=== PATIENT | male | born 1950 | race Caucasian/White ===

== ENCOUNTER 2016-09-03 16:07 | Inpatient (IN) | payer OTHER, MEDICAID ==
[~2016-09-03] VITALS: Ht 167.6 cm; Wt 67.6 kg
--- NOTE | 2016-09-03 16:25 | NUR ---
NO CP, NO SOB, NO SIGNS OF RESP DISTRESS NOTED.
--- NOTE | 2016-09-03 16:34 | NUR ---
PT RESTING COMFORTABLY. BREATHING EVEN UNLABORED IN NAD.
--- NOTE | 2016-09-03 16:45 | NUR ---
PT BIB FAMILY C/C COUGH BODY ACHES X [address] BARRON AT BEDSIDE TO LISA
--- NOTE | 2016-09-03 16:58 | NUR ---
PT STARTED ON IV ATB
--- NOTE | 2016-09-03 17:02 | NUR ---
PLEASE ENTER FULL NAMES OF DOWELER/RN Patient data collected by (DOWELER):BLANCA FORD Assessment reviewed and completed by (RN):CON CABRAL
[2016-09-03 17:05] LABS: PLATELET COUNT 220 x10^3mcL (130-400); RED CELL DISTRIBUTION WIDTH 13.7 % (11.5-14.5)
[2016-09-03 17:09] LABS: CARBON DIOXIDE 31.5 mmol/L (21-32); CHLORIDE SERUM 100 mmol/L (98-107); CREATININE SERUM 0.9 mg/dL (0.7-1.3); GFR1 > 60 mL/min; GLUCOSE SERUM 117 mg/dL (74-106); SODIUM SERUM 136 mmol/L (136-145)
[2016-09-03 17:14] LABS: ALBUMIN 3.7 g/dL (3.4-5.0); ALKALINE PHOSPHATASE 106 U/L (46-116); ALT/SGPT 16 U/L (16-63); AST/SGOT 14 U/L (15-37); BILIRUBIN TOTAL 0.77 mg/dL (0.20-1.00); TOTAL PROTEIN, SERUM 7.3 g/dL (6.4-8.2)
[2016-09-03 17:50] LABS: BAND NEUTROPHIL 1 % (0-10); BASOPHIL 0 % (0-2); SEGMENTED NEUTROPHILS 17 % (37-75)
[2016-09-03 17:51] LABS: MONOCYTE 13 % (0-7); PLATELET MORPHOLOGY PLATELETS NORMAL
--- NOTE | 2016-09-03 17:55 | NUR ---
PT MEDICATED PER MD ORDERS FOR PAIN.
[2016-09-03 18:10] LABS: PATH REVIEW for HEMA YES
--- NOTE | 2016-09-03 18:53 | NUR ---
PT ADMIT TO TELE ROOM 224A GAVE REPORT TO AMELIA
[2016-09-03 19:16] LABS: CHOLESTEROL/HDL RATIO 3.4
[2016-09-03 19:20] VITALS: BP 138/78
[2016-09-03 19:23] LABS: T3 TOTAL 0.97 ng/mL
[2016-09-03 19:29] LABS: FREE T4 1.34 ng/dL (0.76-1.46); FREE THYROXINE INDEX 3.1 ug/dL (1.4-4.5); T4(THYROXINE) 9.9 ug/dL (4.7-13.3)
--- NOTE | 2016-09-03 19:34 | NUR ---
REC'D AOX4, SPEECH CLEAR. DENIES HOFF AND DIZZINESS. AT THE BEDSIDE. ATTACHED TELE 20. NSR. DENIES CHEST PAIN. C/O COUGH. ON RA, NO SOB NOTED. IV SITE WNL. ORIENTED PT TO ROOM AND SURROUNDINGS. CALL LIGHT WITHIN REACH, PROVIDED REPORT TO ASIF [place]
--- NOTE | 2016-09-03 19:45 | NUR ---
STARTED IV NS BOLUS INFUSING LEFT AC. DENIES ANY PAIN OR DISCOMFORT. PT STATED HE RECEIVED HIS LAST CHEMO THIS AUGUST. FROM MARCH 2016 TO LAST WEEK. MADE COMFORTABLE IN BED. SKIN IS INTACT. WILL MONITOR.
[2016-09-03 22:04] VITALS: BP 138/78
--- NOTE | 2016-09-03 22:47 | NUR ---
THE BOLUS WAS NOT FINISHED BECAUSE THE PT WENT TO CT SCAN AND BEFORE THAT IT WAS CLOGGED. RESUMED IV BOLUS AFTER THE LEVAQUIN IV. PT VOMITED AFTER THE CT SCAN MEDICATED WITH ZOFRAN. VOMITED SMALL YELLOWISH SECRETIONS ABOUT75 ML. WILL MONITOR. ALSO WAS SHIVERING. WARM BLANKET WAS PROVIDED.
--- NOTE | 2016-09-03 22:50 | NUR ---
MEDICATED WITH ZOFRAN 4MG IVPUSH FOR VOMITING. HEAD OF BED ELEVATED.
--- NOTE | 2016-09-04 00:41 | NUR ---
THE SECOND LITER OF NS BOLUS IS INFUSING. PT TOLERATED WELL. ONE MORE 500 ML BOLUS AFTER THE SECOND LITER OF NS. VITAL SIGNS DOCUMENTED.
[2016-09-04 00:42] VITALS: BP 112/66
--- NOTE | 2016-09-04 03:06 | NUR ---
THE REMAINING 500 ML BOLUS IS INFUSING. PT TOLERATED WELL.
[2016-09-04 04:34] VITALS: Ht 167.6 cm; Wt 67.6 kg
--- NOTE | 2016-09-04 05:30 | NUR ---
PT IS RESTING. ABLE TO TOLERATE BOLUS NS AT 2500 ML. MADE COMFORTABLE IN BED. CALL LIGHT WITHIN. USING URINAL. WILL MONITOR.
[2016-09-04 06:12] LABS: PLATELET COUNT 167 x10^3mcL (130-400); RED CELL DISTRIBUTION WIDTH 13.6 % (11.5-14.5)
[2016-09-04 06:26] LABS: CALCIUM 8.2 mg/dL (8.5-10.1); CARBON DIOXIDE 26.2 mmol/L (21-32); CHLORIDE SERUM 105 mmol/L (98-107); CREATININE SERUM 0.8 mg/dL (0.7-1.3); GFR1 > 60 mL/min; GLUCOSE SERUM 105 mg/dL (74-106); MAGNESIUM 1.7 mg/dL (1.8-2.4); PHOSPHOROUS 3.1 mg/dL (2.5-4.9); POTASSIUM SERUM 4.3 mmol/L (3.5-5.1); SODIUM SERUM 137 mmol/L (136-145)
--- NOTE | 2016-09-04 06:58 | NUR ---
PT'S HEART MONITOR WAS DISCONTINUED. CHANGED STATUS TO Uptake.
[2016-09-04 07:21] VITALS: BP 112/66; BP 133/85
--- NOTE | 2016-09-04 07:30 | NUR ---
RECEIVED PATIENT AAOX4, ABLE TO COMMUNICATE AND FOLLOW COMMANDS, NO DISTRESS NOTED, AND DENIES CHEST PAIN. PALPABLE PULSES TO BUE/BLE AND SCDS IN PLACE. ON ROOM AIR, DENIES SOB, AND RESPIRAITON EVEN AND UNLABORED. DENIES N/V/D. VOIDS FREELY WITH BRP AND UP WITH SLOW/BALANCED GIAT. DENIES PAIN. IV TO LAC CDI AND INFUSING NS AT 120ML/HR FREELY. CALL LIGHT AND BELONGINGS WITHIN REACH, AND WILL CONTINUE TO MONITOR.
--- NOTE | 2016-09-04 08:45 | NUR ---
ROUNDS MADE BY , RESIDENTS, AND MEDICAT STAFF AT BEDSIDE, PATIENT IMMUNIE SYSTEM IS COMPROMISED DUE TO CHEMO THERAPY, PATIENT WILL BE KEPT TODAY TO CONTINUE ANTIBIOTICS, AND IF PATIENT HAS NOT N/V OR NO ELEVATED TEMPERTURE PATIENT WILL BE DISCHARGED TOMORROW, ALL QUESTIONS AND CONCENRS ADDRESSED, CALL LIGHT AND BELONGINGS WITHIN REACH, AND WILL CONTINUE TO MONITOR.
[2016-09-04 09:27] VITALS: BP 116/66
[2016-09-04 12:32] LABS: BAND NEUTROPHIL 20 % (0-10); SEGMENTED NEUTROPHILS 0 % (37-75)
[2016-09-04 12:33] LABS: ATYPICAL LYMPH 5 %; BASOPHIL 0 % (0-2); BLAST 0 % (0); METAMYELOCTE 0 % (0-2); MONOCYTE 35 % (0-7); MYELOCYTE 0 % (0-2); PROMYELOCYTE 0 % (0-0); rbc morphology (normal/abnorm) ABNORMAL (NORMAL)
[2016-09-04 12:34] LABS: PLATELET MORPHOLOGY D
[2016-09-04 17:43] VITALS: BP 125/65
[2016-09-04 19:03] LABS: UA SPECIFIC GRAVITY 1.025 (1.005-1.035); microscopic required? YES; urine erythrocyte 2+ (NEGATIVE)
--- NOTE | 2016-09-04 19:05 | NUR ---
PATIENT AAOX4, NO DISTRESS NOTED, RESPIRAITONS EVEN AND UNLABORED, DENIES PAIN, CALL LIGHT AND BELONGIGNS WITHIN REACH, AND WILL ENDORSE TO NIGHT NURSE.
--- NOTE | 2016-09-04 19:50 | NUR ---
RECEIVED PT FROM AM NURSE. A/O X4. PT LAYING IN BED COMFORTABLY. DENIES PAIN AT THIS TIME. LUNG SOUNDS ARE DIMINISHED. BREATHING ARE EVEN AND UNLABORED. PULSES ARE PALPABLE AND EVEN. ON RA. DENIES SOB. BOWEL SOUNDS ARE ACTIVE IN ALL 4 QUADRANTS. ABD SOFT AND ROUND BELLO. NO EDEMA NOTED. AMBULATE WITH A STEADY GAIT. IV INTACT AND PATENT. BED IN LOWEST POSITION. CALL LIGHT REINFORCED. WILL CONTINUE TO MONITOR.
[2016-09-04 20:59] VITALS: BP 112/61
[2016-09-04 21:04] VITALS: BP 111/64
--- NOTE | 2016-09-05 05:05 | NUR ---
MADE ROUNDS. PT WAS ASLEEP PERIODICALLY THROUGHOUT THE NIGHT. NO COMPLAINS OF PAIN. NO SIGNIFICANT CHANGES. ALL NEEDS WERE MET AND ATTENDED TO. IV INTACT AND PATENT. BED IN LOWEST POSITION. CALL LIGHT WITHIN REACH. WILL CONTINUE TO MONITOR AND ENDORSE ALL CARE TO ONCOMING NURSE.
[2016-09-05 05:57] VITALS: BP 129/72
[2016-09-05 06:29] LABS: PLATELET COUNT 162 x10^3mcL (130-400); RED CELL DISTRIBUTION WIDTH 13.7 % (11.5-14.5)
[2016-09-05 06:34] LABS: CALCIUM 8.4 mg/dL (8.5-10.1); CARBON DIOXIDE 28.2 mmol/L (21-32); CHLORIDE SERUM 105 mmol/L (98-107); CREATININE SERUM 0.9 mg/dL (0.7-1.3); GFR1 > 60 mL/min; GLUCOSE SERUM 101 mg/dL (74-106); MAGNESIUM 1.8 mg/dL (1.8-2.4); PHOSPHOROUS 2.9 mg/dL (2.5-4.9); POTASSIUM SERUM 4.1 mmol/L (3.5-5.1); SODIUM SERUM 140 mmol/L (136-145)
--- NOTE | 2016-09-05 06:34 | NUR ---
PT TEMPERATURE 99.5. GIVEN COLD PACKS IN BOTH UNDERARM. GIVEN PRN TYLENOL. WILL CONTINUE TO MONITOR.
--- NOTE | 2016-09-05 07:16 | NUR ---
LATEST PT TEMPERATURE 98.5. WILL ENDORSE TO AM NURSE.
--- NOTE | 2016-09-05 08:00 | NUR ---
AWAKE AND ALERT. TEMP 98.5. MED SURG PT. RESP 18 EVEN. BREATH SOUNDS CLEAR. NO COUGH OR SOB. CONTINUES WITH RT TX ORDERED. UP IN CHAIR FOR BREAKFAST. ABD SOFT, BOWEL TONES PRESENT. LBM=3-23-17. VOIDING QS. NO EDEMA. PULSES PRESENT. SCD IN PLACE. IV PATENT LAC INFUSING NORMAL SALINE 10CC/HR. DENIES PAIN. DROPLET ISOLATION MAINTAINED. WBC THIS AM=3.1. PT REPORTS "LAST CHEMO TX LAST WEEK." SIDE RAILS UP X2. CALL LIGHT IN REACH.
--- NOTE | 2016-09-05 09:05 | NUR ---
DR TERRY AND MEDICAL TEAM IN ON ROUNDS. CHARGE AND PRIMARY NURSE PRESENT. DISCUSSED LAB RESULTS AND PLAN FOR DISCHARGE HOME TODAY. PT VERBALIZED UNDERSTANDING. IV CONVERTED TO SALINE LOCK.
[2016-09-05 09:12] LABS: BAND NEUTROPHIL 16 % (0-10); METAMYELOCTE 11 % (0-2); MONOCYTE 11 % (0-7); MYELOCYTE 2 % (0-2); SEGMENTED NEUTROPHILS 40 % (37-75)
[2016-09-05 09:13] LABS: ovalocyte/elliptocyte 1+; rbc morphology (normal/abnorm) ABNORMAL (NORMAL)
[2016-09-05 09:14] LABS: PLATELET MORPHOLOGY PLATELETS NORMAL
[2016-09-05 09:27] VITALS: BP 135/73
[2016-09-05 11:06] VITALS: BP 135/73
[2016-09-05] MEDS ORDERED: LEVAQUIN750 MG PO (11:36)
[2016-09-05] MEDS ORDERED: LAC PO (11:37)
[2016-09-05] MEDS ORDERED: ZOF4 PO (11:37)
[2016-09-05] MEDS ORDERED: AUG500 PO (11:38)
--- NOTE | 2016-09-05 13:20 | NUR ---
IV REMOVED CATH TIP INTACT. HERE. REVIEWED DISCHARGE INSTRUCTIONS WITH TWO ORAL ANTIBIOTICS TO START TODAY. REVIEWED ACTIONS, SIDE EFFECTS AND MED SCHEDULE. VERBALIZED UNDERSTANDING. TO CALL MD FOR FOLLOWUP APPT IN [place]. PT DC VIA WHEELCHAIR WITH BELONGINGS TO DISCHARGE NURSE OFFICE FOR EXIT INTERVIEW.
== END 2016-09-05 13:20 | disposition home or self-care (01) | DRG 177 ==
LOC: ED 16:07 → DU 18:23 → MU 18:23 → DU 19:07 → MU 09-04 05:54
PROVIDERS: Emergency Medicine; ADMIT Family Medicine
DX: J69.0 Pneumonitis due to inhalation of food and vomit (principal); N17.0 Acute kidney failure with tubular necrosis; C85.90 Non-Hodgkin lymphoma, unspecified, unspecified site; D70.1 Agranulocytosis secondary to cancer chemotherapy; R22.2 Localized swelling, mass and lump, trunk; E83.42 Hypomagnesemia; E78.5 Hyperlipidemia, unspecified; T45.1X5A Adverse effect of antineoplastic and immunosuppressive drugs, initial encounter; Z68.24 Body mass index [BMI] 24.0-24.9, adult
CPT/HCPCS: 83880; 84439; 85060; 94150; J0696; J1885; J1956; J2405; J3490; J7030; J7040; J7620; Q9967